=== PATIENT | male | born 1995 | race Two or more races ===

== ENCOUNTER 2025-01-14 18:27 | Inpatient (IN) | payer OTHER ==
[2025-01-14 18:48] VITALS: BMI 27.1
[2025-01-14] MEDS ORDERED: IBUPROFEN 600 MG TABLET (FP) PO PRN (19:05)
[2025-01-14] MEDS ORDERED: BENZONATATE 200 MG CAPSULE PO PRN (19:05)
[2025-01-14] MEDS ORDERED: ONDANSETRON *ODT* 4 MG TABLET SL PRN (19:05)
[2025-01-14] MEDS ORDERED: BENZOCAINE/MENTHOL (CHLORASEPTIC ) LOZENGE MM PRN (19:05)
[2025-01-14] MEDS ORDERED: MAG HYDROX/AL HYDROX/SIMETH 30 ML UNIT-DOSE CUP PO PRN (19:05)
[2025-01-14] MEDS ORDERED: P-EPHED 60MG/TRIPROLIDI 2.5MG TABLET PO PRN (19:05)
[2025-01-14] MEDS ORDERED: IBUPROFEN 400 MG TABLET (FP) PO PRN (19:05)
[2025-01-14] MEDS ORDERED: DICYCLOMINE HCL 10 MG CAPSULE PO PRN (19:05)
[2025-01-14] MEDS ORDERED: guaiFENesin 600 MG TABLET.ER (FP) PO PRN (19:05)
[2025-01-14] MEDS ORDERED: NICOTINE POLACRILEX 2 MG LOZENGE BC PRN (19:05)
[2025-01-14] MEDS ORDERED: ACETAMINOPHEN 325 MG TABLET (FP) PO PRN (19:05)
[2025-01-14] MEDS ORDERED: NALOXONE (NARCAN) HCL 4 MG/0.1 ML SPRAY NS PRN (19:05)
[2025-01-14] MEDS ORDERED: POLYETHYLENE GLYCOL (HEALTHYLAX) 3350 17 GM PACKET PO PRN (19:05)
[2025-01-14] MEDS ORDERED: MAGNESIUM HYDROX 2400MG/30ML ORAL SUSPENSION 30 ML CUP PO PRN (19:05)
[2025-01-14] MEDS ORDERED: NICOTINE POLACRILEX 2 MG GUM BUC PRN (19:05)
[2025-01-14] MEDS ORDERED: BISMUTH SUBSALICYLATE 524 MG/30 ML PO PRN (19:05)
[2025-01-14] MEDS ORDERED: LOPERAMIDE HCL 2 MG CAPSULE PO PRN (19:05)
[2025-01-14] MEDS ORDERED: chlordiazePOXIDE HCL 25 MG CAPSULE ONE (19:23)
[2025-01-14] MEDS: chlordiazePOXIDE HCL 25 MG CAPSULE PO ONE (19:39)
[2025-01-14] MEDS ORDERED: propRANOLol HCL 10 MG TABLET ONE (20:00)
[2025-01-14] MEDS: propRANOLol HCL 10 MG TABLET PO ONE (20:13)
[2025-01-14] MEDS: THIAMINE 100 MG TABLET PO SCH (23:31)
[2025-01-14] MEDS: MELATONIN 5 MG TABLETS PO SCH (23:32)
[2025-01-14] MEDS: chlordiazePOXIDE HCL 25 MG CAPSULE PO SCH (23:33)
[2025-01-15] MEDS: PRENATAL VITAMINS W/ FOLIC ACID TABLET (FP) PO SCH (10:29)
[2025-01-15] MEDS: METHOCARBAMOL 500 MG TABLET PO PRN (10:29)
[2025-01-15 11:57] LABS: HEMATOCRIT 39.3 % (35.4-49); HEMOGLOBIN 12.8 GM/dL (11.7-16.9); MCH 29.2 pg (25.7-33.7); MCHC 32.6 g/dl (32.0-35.9); MEAN CELL VOLUME 89.6 fl (80-96); MEAN PLT VOLUME 7.3 fl (7.5-11.1); PLATELET COUNT 205 10^3/uL (134-434); RBC 4.38 M/mm3 (4.00-5.60); RDW 16.7 % (11.9-15.9); WHITE BLOOD COUNT 3.8 K/mm3 (4.0-10.0)
[2025-01-15 12:05] LABS: POTASSIUM 3.9 mmol/L (3.5-5.1)
[2025-01-15 12:10] LABS: CALCIUM 9.2 mg/dL (8.5-10.1)
[2025-01-15 12:11] LABS: BLOOD UREA NITROGEN 8.5 mg/dL (7-18)
[2025-01-15 12:15] LABS: ALBUMIN 3.3 g/dl (3.4-5.0)
[2025-01-15 12:17] LABS: BILIRUBIN,TOTAL 0.7 mg/dL (0.2-1)
[2025-01-15 12:18] LABS: CREATININE 0.7 mg/dL (0.55-1.3)
[2025-01-15] MEDS: chlordiazePOXIDE HCL 25 MG CAPSULE PO PRN (14:03)
[2025-01-15] MEDS: NALTREXONE HCL 50 MG TABLET PO ONE (14:05)
[2025-01-16] MEDS: chlordiazePOXIDE HCL 25 MG CAPSULE PO SCH (05:55)
[2025-01-16 07:25] VITALS: RESP 16
[2025-01-16 09:09] VITALS: BP 128/83; PULSE 108; TEMP 98.7
[2025-01-16] MEDS: NALTREXONE HCL 50 MG TABLET PO SCH (10:14)
[2025-01-17] MEDS ORDERED: chlordiazePOXIDE HCL 10 MG CAPSULE PO PRN
[2025-01-17] MEDS ORDERED: chlordiazePOXIDE HCL 10 MG CAPSULE PO SCH (05:00)
[2025-01-18] MEDS ORDERED: chlordiazePOXIDE HCL 10 MG CAPSULE PO SCH (05:00)
[2025-01-19] MEDS ORDERED: chlordiazePOXIDE HCL 10 MG CAPSULE PO ONE (05:00)
== END 2025-01-16 13:21 | disposition left against medical advice (07) | DRG 770 ==
LOC: YASAS 18:27 → Y6N 19:27
PROVIDERS: ADMIT Allergy & Immunology; ATTEND Allergy & Immunology
PROC: HZ2ZZZZ Detoxification Services for Substance Abuse Treatment (ICD-10-PCS; principal; 2025-01-14)
DX: F10.230 Alcohol dependence with withdrawal, uncomplicated (principal); F12.20 Cannabis dependence, uncomplicated; F17.213 Nicotine dependence, cigarettes, with withdrawal; I10 Essential (primary) hypertension
CPT/HCPCS: 36415; 80053; 80305; 80307; 85027; 86780; 93005; 93010